=== PATIENT | female | born 1930 | race Caucasian/White ===

== ENCOUNTER → 2017-10-05 | Outpatient (CLI) | payer MEDICARE ==
[~2017-10-05] MED LIST: ALEN35TA24 PO; ASPI81TA82 PO; LEVA500T PO; LOVA40TA PO; SYNT75TA PO; TIMO0.5S29
== END ==
LOC: HRSP 10:01
PROVIDERS: ATTEND Internal Medicine Pulmonary Disease
DX: R05 Cough (principal)
CPT/HCPCS: 36600; 82805; 94060; 94618; 94726; 94729